=== PATIENT | male | born 1980 | race Asian ===

== ENCOUNTER 2017-02-07 17:29 | Outpatient (CLI) | payer OTHER | END 2017-02-07 17:39 | disposition short-term general hospital (02) | LOC: AMB 17:29 | DX: R07.81 Pleurodynia (principal); S80.812A Abrasion, left lower leg, initial encounter; V49.88XA Car occupant (driver) (passenger) injured in other specified transport accidents, initial encounter; Y92.414 Local residential or business street as the place of occurrence of the external cause | CPT/HCPCS: A0425; A0429 ==

== ENCOUNTER 2017-02-07 17:39 | Emergency (ER) | payer OTHER ==
[~2017-02-07] VITALS: Ht 185.4 cm; Wt 124.7 kg
[2017-02-07 20:34] VITALS: BP 121/76; TEMP 98.1
== END 2017-02-07 20:36 | disposition home or self-care (01) ==
LOC: ED 17:39
DX: S20.212A Contusion of left front wall of thorax, initial encounter (principal); S20.211A Contusion of right front wall of thorax, initial encounter; V49.3XXA Car occupant (driver) (passenger) injured in unspecified nontraffic accident, initial encounter
CPT/HCPCS: 99283

== ENCOUNTER 2017-10-05 14:16 | Emergency (ER) | payer OTHER ==
[~2017-10-05] VITALS: Ht 182.9 cm; Wt 129.3 kg
[2017-10-05 15:42] LABS: PLATELET COUNT 297 K/uL (142-355)
[2017-10-05 15:55] LABS: SODIUM 141 mmol/L (136-145)
[2017-10-05 17:20] VITALS: BP 131/72; TEMP 97.7
== END 2017-10-05 17:20 | disposition home or self-care (01) ==
LOC: ED 14:16
PROVIDERS: Family Medicine
DX: R60.9 Edema, unspecified (principal); R06.02 Shortness of breath
CPT/HCPCS: 36415; 80053; 83880; 84484; 85027; 93005; 99283

== ENCOUNTER 2018-10-20 09:16 | Emergency (ER) | payer OTHER ==
[~2018-10-20] VITALS: Ht 182.9 cm; Wt 136.1 kg
[2018-10-20 10:36] LABS: PLATELET COUNT 284 K/uL (142-355)
[2018-10-20 10:44] LABS: POTASSIUM 3.9 mmol/L (3.6-5.2)
[2018-10-20 12:19] VITALS: BP 140/95; TEMP 97.7
== END 2018-10-20 12:20 | disposition home or self-care (01) ==
LOC: ED 09:16
PROVIDERS: Emergency Medicine
DX: K52.89 Other specified noninfective gastroenteritis and colitis (principal); D72.828 Other elevated white blood cell count
CPT/HCPCS: 80053; 85027; 87502; 87651; 96360; 96374; 99284; J0696; J2405

== ENCOUNTER 2020-05-11 18:37 | Emergency (ER) | payer OTHER ==
[~2020-05-11] VITALS: Ht 182.9 cm; Wt 136.1 kg
[2020-05-11 19:35] LABS: PLATELET COUNT 301 K/uL (142-355)
[2020-05-11 19:44] LABS: POTASSIUM 4.2 mmol/L (3.6-5.2)
[2020-05-11 21:45] VITALS: BP 128/75; TEMP 97.7
== END 2020-05-11 21:46 | disposition home or self-care (01) ==
LOC: ED 18:37
PROVIDERS: Family Medicine
DX: J02.9 Acute pharyngitis, unspecified (principal); J06.9 Acute upper respiratory infection, unspecified; F17.210 Nicotine dependence, cigarettes, uncomplicated
CPT/HCPCS: 36415; 80053; 82728; 85027; 87502; 87651; 99283

== ENCOUNTER 2021-05-12 15:36 | Emergency (ER) | payer OTHER ==
[~2021-05-12] VITALS: Ht 182.9 cm; Wt 136.1 kg
[2021-05-12 15:40] VITALS: TEMP 97.6
[2021-05-12 17:37] VITALS: BP 122/68
== END 2021-05-12 17:38 | disposition home or self-care (01) ==
LOC: ED 16:36
DX: J06.9 Acute upper respiratory infection, unspecified (principal); L03.115 Cellulitis of right lower limb; Z20.822 Contact with and (suspected) exposure to COVID-19; F17.210 Nicotine dependence, cigarettes, uncomplicated
CPT/HCPCS: 87635; 87651; 96372; 99283; J0696; J1100; U0003

== ENCOUNTER 2021-07-08 12:09 | Emergency (ER) | payer OTHER ==
[~2021-07-08] VITALS: Ht 182.9 cm; Wt 140.6 kg
[2021-07-08 12:20] VITALS: BP 151/82; TEMP 99.4
== END 2021-07-08 13:25 | disposition home or self-care (01) ==
LOC: ED 12:09
DX: J06.9 Acute upper respiratory infection, unspecified (principal); J32.8 Other chronic sinusitis; U07.1 COVID-19; F17.210 Nicotine dependence, cigarettes, uncomplicated
CPT/HCPCS: 87635; 96372; 99283; J0696; J1100; U0003

== ENCOUNTER 2022-08-06 11:51 | Emergency (ER) | payer OTHER ==
[~2022-08-06] VITALS: Ht 182.9 cm; Wt 127.0 kg
[2022-08-06 12:00] VITALS: TEMP 98.9
[2022-08-06 13:05] VITALS: BP 140/80
== END 2022-08-06 13:05 | disposition still patient (30) ==
LOC: ED 11:51
DX: M24.811 Other specific joint derangements of right shoulder, not elsewhere classified (principal); S49.81XA Other specified injuries of right shoulder and upper arm, initial encounter; X50.9XXA Other and unspecified overexertion or strenuous movements or postures, initial encounter; Y92.89 Other specified places as the place of occurrence of the external cause
CPT/HCPCS: 99282; J1885